=== PATIENT | male | born 1995 | race Caucasian/White ===

== ENCOUNTER 2024-05-26 17:39 | Emergency (ER) | payer OTHER, SELFPAY ==
--- NOTE | 2024-05-26 17:42 | ED.URI ---
HPI - URI/Sore Throat General Chief Complaint: Ear Stated Complaint: headache,rt earache Time Seen by Provider: 05/26/24 17:42 Source: patient Mode of arrival: ambulatory Limitations: no limitations History of Present Illness HPI Narrative: Shane is a 29-year-old male who presents to clinic today with complaints of headache, right ear pain, and toothache for 5 days. He states his symptoms started on Tuesday and made an appointment with the dentist whom he saw on Tuesday. They stated he probably needs a root canal and referred him to an oral surgeon. He has been alternating Tylenol, ibuprofen, and Excedrin for pain relief at home. He has also been using Orajel as needed for his toothache. MD elicited complaint: other (Headaches, right ear pain, tooth aches) Related Data Home Medications Medication Instructions Recorded Confirmed penicillin V potassium 500 mg 500 mg PO QID 05/26/24 05/26/24 tablet Allergies Allergy/AdvReac Type Severity Reaction Status Date / Time No Known Allergies Allergy Verified 05/26/24 18:03 Review of Systems Review of Systems: Pertinent positives per HPI. Patient denies any fever, chills, rash, visual changes, dizziness, cough, runny nose, sore throat, shortness of breath, chest pain, palpitations, nausea, vomiting, diarrhea, constipation, abdominal pain, or any urinary issues. PMFSH Comments At the time of my signature, I reviewed and agree with the nursing past medical, surgical, social, and family history. There is no relevant family history pertinent to the patient complaint. Exam Narrative: General: Well-developed, well nourished, in no apparent distress Head: Normocephalic, atraumatic, no facial edema Eyes: Pupils equally round and reactive to light bilaterally, EOM intact, sclera and conjunctive clear, no discharge, lids normal Ears: TMs intact and clear, ear canals clear, no drainage, grossly hearing normal. Nose: Nares patent, no discharge, no inflammation, no sinus tenderness. Mouth: Oral pharynx without lesions or masses, right upper second molar with dental cavity, MMM. Neck: Supple, trachea midline Course Course Emergency Course: Portions of this record may have been created with voice recognition software. Level of Care: Express Care Visit Vital Signs Vital signs: Vital signs reviewed MDM - URI/Sore Throat MDM Narrative Medical decision making narrative: At the time of visit patient is resting comfortably on the exam table. Patient appears to be nontoxic. Plan: I suspect the patient has toothache related to dental caries. Prescription review with the patient. Recommend follow-up with dentist as soon as possible. Supportive measures were discussed with the patient and they voiced understanding discharge instructions and agrees to treatment plan. Return precautions reviewed Differential Diagnosis Differential diagnosis: Likely upper respiratory infection, otitis media, sinusitis, viral infection, bronchitis, influenza, pharyngitis and other (COVID, dental abscess, dental caries) Discharge Plan Discharge Clinical Impression: Toothache Patient Disposition: Home, Self-Care Condition: Stable Instructions: Antibiotic Form, Toothache (ED) Additional Instructions: Increase fluid intake and stay well hydrated. Take Tylenol/ibuprofen as needed for pain. May use Orajel as needed for pain as directed on label. May apply ice pack as needed. Follow-up with dentist as soon as possible. Prescriptions: New ibuprofen 800 mg tablet 800 mg PO TID PRN (Reason: pain) 10 Days Qty: 30 0RF No Action penicillin V potassium 500 mg tablet 500 mg PO QID Follow-up/Referrals: UNKNOWN,DOCTOR [Non-Staff] - Time of Disposition: 18:10 Quality NIHSS Nursing Documentation ED NIHSS nursing documentation: reviewed/agree
[2024-05-26 17:57] VITALS: BP 134/74; PULSE 67; RESP 18; TEMP 36.8; O2SAT 100
== END 2024-05-26 18:13 | disposition home or self-care (01) ==
PROVIDERS: Emergency Provider Nurse Practitioner Family
DX: K08.89 Other specified disorders of teeth and supporting structures (principal)
CPT/HCPCS: 99203; G0463